=== PATIENT | female | born 1975 | race American Indian/Alaskan Native ===

== ENCOUNTER 2021-09-02 16:03 | Emergency (ER) | payer MEDICAID ==
--- NOTE | 2021-09-02 19:10 | Emergency Department Report ---
ED ENT HPI - General Chief complaint: Headache Stated complaint: SINUS PAIN Time Seen by Provider: 09/02/21 18:52 Source: patient Mode of arrival: Ambulatory Limitations: No Limitations - History of Present Illness Initial comments: The patient was evaluated in the emergency department for symptoms described in the history of present illness. He/she was evaluated in the context of the global COVID-19 pandemic, which necessitated consideration that the patient might be at risk for infection with the virus that causes COVID-19. Institutional protocols and algorithms that pertain to the evaluation of patients at risk for COVID-19 are in a state of rapid change based on information released by regulatory bodies including the CDC and federal and [facility] organizations. These policies and algorithms were followed during the patient's care in the emergency department. Please note that these policies, procedures and recommendations changed on a rapid basis. 46-year-old morbid obese -[place] female with a past medical history of hypertension and CHF presents to the emergency room for left side headache behind left eye and left cheek since Thursday. Patient states she thinks is her sinuses. Patient reports she had taken ibuprofen 2 days ago but did not take any pain medicine to today as she wanted to show that she had pain. It was noted that patient has elevated blood pressure 176/102. Patient reports her pain is a 7-8 out of 10 but not the worst headache of her life. She states that the headache is consistent. Patient does report that she has a history of bad teeth. Patient denies any weakness no chest pain or shortness of breath no visual changes. Nothing makes the headache worse ibuprofen has helped. - Related Data Previous Rx's Medication Instructions Recorded Last Taken Type Cetirizine HCl [ZyrTEC 10mg cap] 10 mg PO QDAY #20 capsule 09/02/21 Unknown Rx Clindamycin [Clindamycin CAP] 300 mg PO Q8H 10 Days #30 cap 09/02/21 Unknown Rx Fluconazole [Diflucan TAB] 200 mg PO QDAY #1 tablet 09/02/21 Unknown Rx Fluticasone [Flonase] 1 spray NS QDAY #1 bottle 09/02/21 Unknown Rx Allergies Allergy/AdvReac Type Severity Reaction Status Date / Time Penicillins Allergy Hives Verified 09/02/21 16:37 ED Dental HPI - General Chief complaint: Headache Stated complaint: SINUS PAIN Time Seen by Provider: 09/02/21 18:52 Source: patient Mode of arrival: Ambulatory Limitations: No Limitations - Related Data Previous Rx's Medication Instructions Recorded Last Taken Type Cetirizine HCl [ZyrTEC 10mg cap] 10 mg PO QDAY #20 capsule 09/02/21 Unknown Rx Clindamycin [Clindamycin CAP] 300 mg PO Q8H 10 Days #30 cap 09/02/21 Unknown Rx Fluconazole [Diflucan TAB] 200 mg PO QDAY #1 tablet 09/02/21 Unknown Rx Fluticasone [Flonase] 1 spray NS QDAY #1 bottle 09/02/21 Unknown Rx Allergies Allergy/AdvReac Type Severity Reaction Status Date / Time Penicillins Allergy Hives Verified 09/02/21 16:37 ED Review of Systems ROS: Stated complaint: SINUS PAIN Other details as noted in HPI ED Past Medical Hx - Past Medical History Hx Hypertension: Yes Hx Congestive Heart Failure: Yes - Surgical History Additional Surgical History: C SECTION - Medications Home Medications: Home Medications Medication Instructions Recorded Confirmed Last Taken Type Cetirizine HCl [ZyrTEC 10mg cap] 10 mg PO QDAY #20 capsule 09/02/21 Unknown Rx Clindamycin [Clindamycin CAP] 300 mg PO Q8H 10 Days #30 cap 09/02/21 Unknown Rx Fluconazole [Diflucan TAB] 200 mg PO QDAY #1 tablet 09/02/21 Unknown Rx Fluticasone [Flonase] 1 spray NS QDAY #1 bottle 09/02/21 Unknown Rx ED Physical Exam - General Limitations: No Limitations General appearance: alert, in no apparent distress - Head Head exam: Present: atraumatic, normocephalic - Expanded ENT Exam Expanded Teeth exam: Present: gingival enlargement, other (Teeth are rotten down to the gums left top gumline as well as the right upper top.) - Respiratory Respiratory exam: Present: normal lung sounds bilaterally. Absent: respiratory distress, chest wall tenderness - Cardiovascular Cardiovascular Exam: Present: regular rate - Extremities Exam Extremities exam: Present: normal inspection - Back Exam Back exam: Present: normal inspection, full ROM - Neurological Exam Neurological exam: Present: alert, oriented X3, CN II-XII intact, normal gait - Psychiatric Psychiatric exam: Present: normal affect, normal mood - Skin Skin exam: Present: warm, dry, intact, normal color. Absent: rash ED Course Vital Signs 09/02/21 16:41 Temperature 98.4 F Pulse Rate 98 H Respiratory 20 Rate Blood Pressure 175/102 O2 Sat by Pulse 93 Oximetry ED Medical Decision Making - Medical Decision Making 46-year-old morbid obese -[place] female with a past medical history of hypertension and CHF presents to the emergency room for left side headache behind left eye and left cheek since Thursday. Patient states she thinks is her sinuses. Patient reports she had taken ibuprofen 2 days ago but did not take any pain medicine to today as she wanted to show that she had pain. It was noted that patient has elevated blood pressure 176/102. Patient reports her pain is a 7-8 out of 10 but not the worst headache of her life. She states that the headache is consistent. Patient does report that she has a history of bad teeth. Patient denies any weakness no chest pain or shortness of breath no visual changes. Nothing makes the headache worse ibuprofen has helped. Discussed with patient that where her pain is is more at the root of her upper teeth and she has teeth that it is right and down to the gums. Patient has no weakness full neuro exam intact. Discussed the patient that she needs to have her blood pressure medication adjusted she states that she has appointment coming up soon with her primary care provider. She states she does not currently have a dentist. She states that she is allergic to penicillin and Zithromax makes her skin peeled. Discussed with patient I will treat her with clindamycin for dental abscess possibility. As this will also cover for sinus infections. I discussed the patient will refer her to a dentist. She asked for Diflucan pills and states that when she takes antibiotics she will get a yeast infection. Critical care attestation.: If time is entered above; I have spent that time in minutes in the direct care of this critically ill patient, excluding procedure time. ED Disposition Clinical Impression: Dental infection, Severely overweight Hypertension Qualifiers: Hypertension type: unspecified Qualified Code(s): I10 - Essential (primary) hypertension Headache Qualifiers: Headache type: unspecified Intractability: intractable Disposition: HOME / SELF CARE / HOMELESS Is pt being admited?: No Does the pt Need Aspirin: No Condition: Stable Instructions: Hypertension (ED), Dental Abscess, [id number], Hypertension, Adult, [id number] Additional Instructions: Complete antibiotics as prescribed ibuprofen or Tylenol for pain. Use nasal spray as prescribed. Take Diflucan after completion of antibiotics. Prescriptions: Clindamycin [Clindamycin CAP] 300 mg PO Q8H 10 Days #30 cap Fluconazole [Diflucan TAB] 200 mg PO QDAY #1 tablet Fluticasone [Flonase] 1 spray NS QDAY #1 bottle Cetirizine HCl [ZyrTEC 10mg cap] 10 mg PO QDAY #20 capsule Forms: Work/School Release Form(ED)
[2021-09-02 20:07] VITALS: BP 152/98
== END 2021-09-02 20:07 | disposition home or self-care (01) ==
LOC: ED 16:03
DX: I50.9 Heart failure, unspecified (principal); K04.7 Periapical abscess without sinus; I11.0 Hypertensive heart disease with heart failure; E66.01 Morbid (severe) obesity due to excess calories; Z98.890 Other specified postprocedural states; Z88.0 Allergy status to penicillin; R51.9 Headache, unspecified
CPT/HCPCS: 99282